=== PATIENT | female | born 1955 | race Caucasian/White ===

== ENCOUNTER → 2017-09-26 | Outpatient (CLI) | payer OTHER ==
[~2017-09-26] MED LIST: (None)20 M1 PO; ALBU3IS INH; ALBU90OI INH; Augmentin 875-1 EACH PO; CITA20 PO; DOCU100 PO; DULERA 200 MCG/13 GM INH; FAMO20 PO; GUAI600T33 PO; INSDET100 SC; LEVEMIR FL100 UNIT/1 SC; LEVFLO500 PO; LORA.5; LORA.5 PO; LOSA50 PO; MOME220I; NICO21TP TOP; NICOTINE1 EAC1 TOP; OLAN5 PO; Omeprazole20 M1 PO; PRED10; PRED10 PO; Prednisone20 MG PO; RANI150 PO; TRIA80TC TOP; Zithromax250 MG PO
[2017-09-28 11:58] LABS: HPV Genotype 16 Detected (NOTDET); HPV Genotype 18 Not Detected (NOTDET)
[2017-10-10 12:51] LABS: HPV High Risk Other Not Detected (NOTDET)
== END ==
LOC: LAB 12:50 → LAB SHORT 12:50
PROVIDERS: Nurse Practitioner Family
DX: Z01.419 Encounter for gynecological examination (general) (routine) without abnormal findings (principal)
CPT/HCPCS: 87624; G0145